=== PATIENT | female | born 1995 ===

== ENCOUNTER 2021-11-09 12:26 | Emergency (ER) | payer MEDICAID ==
[2021-11-09 14:50] LABS: BLOOD UREA NITROGEN,BUN 11 mg/dL (7.0-18.0); CARBON DIOXIDE,CO2 25.2 mmol/L (21.0-32.0); CHLORIDE,CL 102 mmol/L (98-107); GLUCOSE RANDOM 100 mg/dL (74-106); LIPASE 36 U/L (73-393); POTASSIUM,K 3.9 mmol/L (3.5-5.1); SODIUM,NA 138 mmol/L (136-145)
[2021-11-09] MEDS ORDERED: Sodium Chloride 0.9% 1,000 ML IV ONE (15:42)
== END 2021-11-09 17:29 | disposition home or self-care (01) ==
LOC: MW.ED 12:26
DX: R09.1 Pleurisy (principal); J22 Unspecified acute lower respiratory infection; Z79.899 Other long term (current) drug therapy
CPT/HCPCS: 36415; 71045; 80053; 81001; 83690; 84703; 85025; 85379; 99284; J7030